=== PATIENT | male | born 1970 | race African-American/Black ===

== ENCOUNTER 2016-04-30 10:26 | Emergency (ER) | payer OTHER ==
[2016-04-30 10:45] VITALS: BP 157/111
--- NOTE | 2016-04-30 11:23 | PROVIDER DOCUMENTATION ---
HPI-Musculoskeletal Pain/Inj <Isai Hargrove - Last Filed: 04/30/16 11:23> - GENERAL Source: patient - HX OF PRESENT ILLNESS-MUSKULOSKELTAL Quality of Pain: reports: other (sore) Severity in ED: mild Onset/Duration: last night Timing: still present Modifying Factors: improves with: nothing Any recent injury?: No Locality of Occurance: Home Similar Symptoms Previously?: No Recently seen or treated by another doctor?: No - FALL INJURY Location of Pain/Injury: reports: none Pain Radiation: reports: no radiation - BACK & NECK PAIN/INJURY History of Chronic Neck or Back Pain?: No - UPPER EXTREMITY PAIN/INJURY Extremities Pain Location: hand: right Context / Method of Injury: reports: other (pt states he was "holding a man down ") <Chantal Matute - Last Filed: 04/30/16 11:42> - GENERAL Chief Complaint: Extremity Pain Stated Complaint: HAND INJURY Time Seen by Provider: 04/30/16 10:52 - HX OF PRESENT ILLNESS-MUSKULOSKELTAL Nature of Presenting Problem: pt is a 45 y/o M present to the Er with c/o pain and swelling in his right hand. pt states he has a hx of paranoid schizophrenia, heart problems, and DM. pt is aggitated with all the medical personel that kept entering his room. pt states he was holing down a man with his hand last night and now it is sore and swollen. (Chantal Matute) Review of Systems - Adult - REVIEW OF SYSTEMS - ADULT Constitutional: reports: no symptoms reported Eyes: reports: no symptoms reported Ears, Nose, Mouth & Throat: reports: no symptoms reported Cardiovascular: reports: no symptoms reported Respiratory: reports: no symptoms reported Gastrointestinal: reports: no symptoms reported Genitourinary: denies: discharge, frequency, hematuria Musculoskeletal: reports: joint pain (right hand), joint swelling (right hand). denies: frequent leg cramps, muscle weakness Integumentary: reports: no symptoms reported Neurological: denies: dizziness/vertigo, headache/migraines, loss of balance Psychiatric: reports: no symptoms reported Endocrine: reports: no symptoms reported Hematologic/Lymphatic: reports: no symptoms reported Allergic/Immunologic: reports: no symptoms reported All Other Systems: Reviewed and Negative <Chantal Matute - Last Filed: 04/30/16 11:42> Past History - Adult - PAST MEDICAL HISTORY-ADULT Review of Records: reports: Nursing Assessment Review Major Childhood Illnesses: reports: denies history Cardiovascular: reports: HTN Respiratory: reports: denies history Gastrointestinal: reports: denies history Obstetrical/Gynecological: reports: denies history Genitourinary: reports: denies history Musculoskeletal: reports: denies history Neurological: reports: denies history Psychiatric: reports: anxiety, depression, psychiatric problems, schizophrenia Endocrine/Immune: reports: Diabetes Other Conditions: reports: denies history - PRIOR SURGERIES/PROCEDURES Surgical/Procedure History: reports: none - IMMUNIZATION STATUS Childhood Immunizations: See Nurse Assessment Flu Vaccine: See Nurse Assessment - FAMILY HISTORY Family History: reviewed, not pertinent - SOCIAL HISTORY Smoking: cigarettes, greater than 1 pack/day Provider spent 3-5 mins advising pt. on dangers of tobacco.: Discussed manners to quit use, and f/u contacts for add'l counseling. Alcohol Use Frequency: never <Chantal Matute - Last Filed: 04/30/16 11:42> Physical Exam-Injury Related - Physical Exam-Injury Related Initial Vital Signs Reviewed: Yes General Appearance: appears well, alert, no apparent distress, other (aggitated) Eyes: PERRL/EOMI, pink conjunctivae Head, Ears, Nose, Mouth & Throat: moist mucous membranes, normal ENT inspection , TMs normal, pharynx normal Neck: non-tender, full range of motion Respiratory: chest non-tender, lungs clear, normal breath sounds Cardiovascular: normal peripheral pulses, regular rate, rhythm, no edema, no gallop, no JVD, no murmur Abdominal Exam: normal bowel sounds, non tender, soft Extremity: normal range of motion, normal gait, normal inspection, no pedal edema, no calf tenderness, normal capillary refill, swelling Integumentary: normal color, warm/dry Neurologic: grossly normal, no motor/sensory deficits Psych/Mental Status: normal mood/affect (normal to his psych diagnosis), normal thought content, oriented x 3, paranoid - Glascow Coma Score Best Eye Response (Joey): (4) open spontaneously Best Verbal Response (Joey): (5) oriented Best Motor Response (Dunlap): (6) obeys commands [place] Total: 15 <Chantal Matute - Last Filed: 04/30/16 11:42> Progress <Isai Hargrove - Last Filed: 04/30/16 11:23> - XRAY 1 XRAY: Right XRAY Study: Hand Impression: Normal XRAY Interpretation: Negative <Chantal Matute - Last Filed: 04/30/16 11:42> - PLAN OF CARE/RESULTS Progress/Plan/Lab Results: Orders Category Date Time Status Wrist Splint DIRECTED Care 04/30/16 11:24 Active HAND COMPLETE RIGHT [RAD] Stat Exams 04/30/16 10:45 Taken Vital Signs - 24 hr 04/30/16 10:41 Temperature 98 F Pulse Rate 80 Respiratory 18 Rate Blood Pressure 157/111 O2 Sat by Pulse 100 Oximetry MD explained to pt that extremity was not broken, he is ordering for splint placement on the extremity. pt states he understood instructions. instructed nurse to apply splint. (Chantal Matute) Departure - Departure Time of Disposition Order: 11:23 Certified Medical Emergency: Emergent <Isai Hargrove - Last Filed: 04/30/16 11:23> <Chantal Matute - Last Filed: 04/30/16 11:42> - Departure DIAGNOSIS: Hand strain Qualifiers: Encounter type: initial encounter Laterality: right Qualified Code(s): S66.911A - Strain of unspecified muscle, fascia and tendon at wrist and hand level, right hand, initial encounter Disposition: HOME 01 Condition: Stable Additional Instructions: ED Follow Up Instructions: You have been treated by a care provider in the Emergency Department. These instructions are being provided to you so you can have an understanding of how to care for yourself upon discharge. Upon discharge from the Emergency Department, you are responsible for making arrangements for follow-up care by a physician of your choice. Take all prescribed medications as directed. Return to the Emergency Department immediately for any new or worsening symptoms. You may call the Physician Referral phone number at [phone] to obtain a list of Physicians who are taking new patients. Prescriptions: Ibuprofen [Motrin] 800 mg PO Q8H PRN PRN #20 tablet PRN Reason: inflammation Omeprazole [Prilosec] 20 mg PO DAILY@0700 #20 capsule Referrals: Tai Rojas MD [Primary Care Provider] - [facility] [Provider Group] Instructions: Hand Contusion, [id number] Attestation - Scribe Verification/Attestation Scribe:: Chantal Matute Acting as Scribe for:: Isai Hargrove Scribe documention review:: This chart was documented by a scribe and accurately reflects the service the provider performed and the decisions made by the provider. <Chantal Matute - Last Filed: 04/30/16 11:42> Physician Attestation
--- NOTE | 2016-04-30 11:59 | Diag Imaging Result Document ---
PROCEDURE NAME: HAND COMPLETE RIGHT - 04/30/2016 RIGHT HAND, 3 VIEWS: COMPARISON: None. FINDINGS: Bones are intact and normally aligned. Joint spaces and soft tissues are clear. IMPRESSION: Negative exam.
== END 2016-04-30 11:37 | disposition home or self-care (01) ==
LOC: ED 10:26
DX: S66.911A Strain of unspecified muscle, fascia and tendon at wrist and hand level, right hand, initial encounter (principal); S69.91XA Unspecified injury of right wrist, hand and finger(s), initial encounter; M79.641 Pain in right hand; M25.441 Effusion, right hand; X58.XXXA Exposure to other specified factors, initial encounter; I10 Essential (primary) hypertension; F41.9 Anxiety disorder, unspecified; F32.9 Major depressive disorder, single episode, unspecified; Z79.899 Other long term (current) drug therapy; F20.9 Schizophrenia, unspecified; F17.210 Nicotine dependence, cigarettes, uncomplicated; Z71.6 Tobacco abuse counseling; Z79.82 Long term (current) use of aspirin